=== PATIENT | female | born 1955 | race Caucasian/White ===

== ENCOUNTER 2024-05-02 14:39 | Emergency (ER) | payer BC, SELFPAY ==
[2024-05-02 14:53] VITALS: BP 162/93
--- NOTE | 2024-05-02 14:53 | ED.GENMED ---
ED Provider Triage
<Germán Sainz PA-C - Last Filed: 05/02/24 14:56>
-
Patient seen by provider in Triage?: Seen in Triage
Attestation: A medical screening examination has been initiated by a qualified medical provider. Based on the assessment performed at this time, it has been determined that an emergent medical condition may exist and the patient has been informed
that further medical evaluation and possible additional diagnostic testing may be needed.
HPI: 68-year-old female presenting to the emergency department from urgent care for evaluation of a large lump on the right side of her neck/chest that she noticed this morning. Urgent care was concerned due to the tenderness and lack of mobility
of the lump. Patient does note a slight cough over the last few days as well and feeling very warm at nighttime but no abnormal weight loss. Labs and CT of the chest ordered.
GENERAL: Alert , in no apparent distress
EYE: No visual abnormalities.
NECK: Trachea midline
ENT: No visible abnormalities.
LUNGS: No acute respiratory distress
NEUROLOGICAL: Alert and oriented
SKIN: Skin intact. No visible changes.
MUSCULOSKELETAL: Moving extremities normally
PSYCH: Normal and appropriate interaction.
This is a medical evaluation conducted in person to initiate diagnostic evaluation and provide initial therapeutics. Please see further documentation by the treating clinician.
History of Present Illness
<Germán Sainz PA-C - Last Filed: 05/02/24 14:56>
General
Chief Complaint: Skin Problem
Time Seen by Provider: 05/02/24 17:06
<Melecio Otero DO - Last Filed: 05/02/24 18:29>
General
Source: patient
Exam Limitations: none
Nursing documentation reviewed up to this point in time: agreed with
History of Present Illness
History of Present Illness:
Seen with PA in triage, right neck swelling less than 12 hours no trauma non-smoker nondrinker minimally tender
Phy Exam
<Melecio Otero DO - Last Filed: 05/02/24 18:29>
Physical Exam
Physical Exam:
Physical Exam
General: no apparent distress, not acutely ill
Neck: Dime size mass minimally tender in the right neck
Heart: s1/s2 regular rate and rhythm, no murmur. equal radial pulses.
Lungs: no acute respiratory distress. clear bilaterally
Neuro: alert and oriented. no focal neurological deficits
Skin: no rash
Psychiatric: well kept. interactive and cooperative
Extremities: no edema.
Course
<Germán Sainz PA-C - Last Filed: 05/02/24 14:56>
Orders/Labs/Results
Orders:
Orders
05/02/24 14:53
CT Chest With Iv Contrast Urgent
Comment:
Reason For Exam: right supraclavicular lypmhadenopathy, cough
05/02/24 15:01
Complete Blood Count/With Diff Urgent
Comprehensive Metabolic Panel Urgent
Abnormal Lab Results
05/02/24
15:01
Absolute Monos (auto) 0.7 H 10^3/uL
(0.1-0.6)
Glucose 115 H mg/dl
(70-99)
05/02/24 15:01
05/02/24 15:01
Vital Signs
Initial and Last Documented VS:
Initial Vital Signs
Temp Pulse Resp BP Pulse Ox
98.4 F 90 16 162/93 99
05/02/24 14:53 05/02/24 14:53 05/02/24 14:53 05/02/24 14:53 05/02/24 14:53
Last Documented Vital Signs
Temp Pulse Resp BP Pulse Ox
98.4 F 90 16 163/80 98
05/02/24 14:53 05/02/24 14:53 05/02/24 14:53 05/02/24 16:54 05/02/24 17:08
<Melecio Otero, DO - Last Filed: 05/02/24 18:29>
Orders/Labs/Results
Orders:
Orders
05/02/24 14:53
CT Chest With Iv Contrast Urgent
Comment:
Reason For Exam: right supraclavicular lypmhadenopathy, cough
05/02/24 15:01
Complete Blood Count/With Diff Urgent
Comprehensive Metabolic Panel Urgent
Abnormal Lab Results
05/02/24
15:01
Absolute Monos (auto) 0.7 H 10^3/uL
(0.1-0.6)
Glucose 115 H mg/dl
(70-99)
05/02/24 15:01
05/02/24 15:01
Vital Signs
Initial and Last Documented VS:
Initial Vital Signs
Temp Pulse Resp BP Pulse Ox
98.4 F 90 16 162/93 99
05/02/24 14:53 05/02/24 14:53 05/02/24 14:53 05/02/24 14:53 05/02/24 14:53
Last Documented Vital Signs
Temp Pulse Resp BP Pulse Ox
98.4 F 90 16 163/80 98
05/02/24 14:53 05/02/24 14:53 05/02/24 14:53 05/02/24 16:54 05/02/24 17:08
<Melecio Otero, DO - Last Filed: 05/02/24 18:29>
MDM/Problems Addressed
Differential Diagnosis Includes:
Lymphadenitis mass infection
MDM/Problems Addressed:
neck mass
<Melecio Otero, DO - Last Filed: 05/02/24 18:29>
*Radiology
Radiology exam reviewed: radiology read reviewed
*Pulse Oximetry
Patient hypoxic: no
*Critical Care Note
Total Time (30-74mins, 75-104mins- exclusive of procedures): Not Applicable
<Melecio Otero DO - Last Filed: 05/02/24 18:29>
Update Note
Update Note:
Labs noted CT noted, will start on antibiotics empirically, referred to ENT nonurgently
ED Attending Note
<Germán Sainz PA-C - Last Filed: 05/02/24 14:56>
-
Portions of this chart may have been created with voice recognition software.� Occasional wrong word or��sound alike� substitutions may have occurred due to the inherent limitations of voice recognition software.
Discharge Plan
Departure
Patient Disposition: Home (Routine Discharge)
Date of Disposition: 05/02/24
Time of Disposition: 18:25
Patient with high blood pressure during this ER visit?: No
Condition: Good
Discharge Problem:
Lymph nodes enlarged
Prescriptions:
New
cephalexin 500 mg capsule
500 mg PO Q8H 7 Days Qty: 21 0RF
Referrals:
Titus Hernandez MD [Active] - Next open appointment
Melissa Castillo CRNP [Family Provider] -
Interventions
Interventions:
ED-Skin Assessment Last Done: 05/02/24 17:09
Discharge Date and Time
Print Language: TURKISH
[2024-05-02 15:24] LABS: % Basophils 0.7 % (0-2); % Eosinophils 2.2 % (0-6); % Immature Granulocytes 0.3 % (0-0.5); % Lymphocytes 26.8 % (20.5-51.1); % Monocytes 7.9 % (1.7-9.3); % Neutrophils 62.1 % (42.2-75.2); Absolute Basophils 0.1 10^3/uL (0-0.2); Absolute Eosinophils 0.2 10^3/uL (0-0.7); Absolute Lymphocytes 2.4 10^3/uL (1.2-3.4); Absolute Monocytes 0.7 10^3/uL (0.1-0.6); Absolute Neutrophils 5.5 10^3/uL (1.4-6.5); Hematocrit 45.2 % (37.0-47.0); Hemoglobin 15.3 g/dL (12.0-16.0); Mean Corp Hgb Conc. 33.8 g/dL (33.0-37.0); Mean Corpuscular Hgb 30.2 pg (27.0-31.0); Mean Corpuscular Volume 89.3 fL (81.0-99.0); Mean Platelet Volume 10.2 fL (7.4-10.4); Nucleated Red Blood Cells % 0 %; Platelet Count 286 10^3/uL (130-400); Red Blood Cell Count 5.06 10^6/uL (4.20-5.40); Red Cell Dist. Width 12.9 % (11.5-14.5); White Blood Cell Count 8.8 10^3/uL (4.8-10.8)
[2024-05-02 15:30] LABS: ALT (SGPT) 29 U/L (0-35); AST (SGOT) 26 U/L (14-36); Albumin 4.6 g/dl (3.5-5.0); Alkaline Phosphatase 79 U/L (38-126); Blood Urea Nitrogen 13 mg/dl (7-17); Carbon Dioxide 27 mmol/L (22-30); Chloride 102 mmol/L (98-107); Glucose 115 mg/dl (70-99); Potassium 3.6 mmol/L (3.5-5.1); Sodium 141 mmol/L (135-145); Total Bilirubin 0.4 mg/dl (0.2-1.3)
[2024-05-02 15:44] LABS: Total Protein 7.3 g/dl (6.3-8.2); eGFR > 60.00
[2024-05-02 16:54] VITALS: BP 163/80
[2024-05-02 18:00] VITALS: BP 135/69
[2024-05-02] MEDS: KEFLEX 500 MG PO (18:40)
== END 2024-05-02 18:58 | disposition home or self-care (01) ==
LOC: EMR 14:39
PROVIDERS: Physician Assistant Medical; EMERGENCY PHYSICIAN Emergency Medicine; FAMILY PHYSICIAN Nurse Practitioner Adult Health
DX: R59.0 Localized enlarged lymph nodes (principal)
CPT/HCPCS: 99284; 71260; 80053; 85025; Q9967